=== PATIENT | male | born 1960 | race Caucasian/White ===

== ENCOUNTER 2019-04-09 21:36 | Emergency (ER) | payer OTHER ==
[2019-04-09 21:50] VITALS: BP 119/71; PULSE 67; TEMP 98.4; BMI 21.4
[2019-04-10] MEDS ORDERED: CLINDAMYCIN HCL 150 MG CAPSULE (FP) PO ONE (01:24)
[2019-04-10] MEDS ORDERED: CLINDAMYCIN HCL 150 MG CAPSULE (FP) ONE (01:26)
--- NOTE | 2019-04-10 01:54 | PDOC ---
Documentation entered by Ramandeep Lee SCRIBE, acting as scribe for Harika Barlow MD. Harika Barlow MD: This documentation has been prepared by the Rosa calloway Adrianna, SCRIBE, under my direction and personally reviewed by me in its entirety. I confirm that the documentation accurately reflects all work, treatment, procedures, and medical decision making performed by me. History of Present Illness - General Chief Complaint: Rash Stated Complaint: POSSIBLE RASH TO BACK OF HEAD Time Seen by Provider: 04/10/19 00:43 - History of Present Illness Initial Comments: The patient is a 59 year old male, with a significant PMH of RA, who presents to the ED for evaluation of pustules on the scalp for 2 weeks. Patient notes he gave himself a haircut 2 weeks ago, and developed 3 pustules on the scalp a few days following. Patient notes they originally were itching but transitioned into a burning sensation. He notes the pain is constant, and denies any aggravating or alleviating factors. He denies any purulent drainage or blood coming from the pustules. Denies fever, chills, nausea, vomit, chest pain, SOB, diarrhea, constipation, or urinary symptoms. Allergies: NKA, NKDA Surgical History: None reported Social History: Denies EtOH, tobacco, or illicit drug use PCP: Dr. Ortega Past History - Past Medical History Allergies/Adverse Reactions: Allergies Allergy/AdvReac Type Severity Reaction Status Date / Time No Known Allergies Allergy Verified 04/09/19 21:49 Home Medications: Ambulatory Orders Clindamycin [Cleocin -] 300 mg PO Q6HPO #28 capsule 04/10/19 COPD: No Other medical history: arthritis - Suicide/Smoking/Psychosocial Hx Smoking History: Never smoked Review of Systems - Review of Systems Comments:: GENERAL/CONSTITUTIONAL: No fever or chills. No weakness. HEAD, EYES, EARS, NOSE AND THROAT: +3 pustules on the scalp that are itching and burning. No change in vision. No ear pain or discharge. No sore throat. CARDIOVASCULAR: No chest pain or shortness of breath. RESPIRATORY: No cough, wheezing, or hemoptysis. GASTROINTESTINAL: No nausea, vomiting, diarrhea or constipation. GENITOURINARY: No dysuria, frequency, or change in urination. MUSCULOSKELETAL: No joint or muscle swelling or pain. No neck or back pain. SKIN: No rash NEUROLOGIC: No headache, vertigo, loss of consciousness, or change in strength/ sensation. ENDOCRINE: No increased thirst. No abnormal weight change. HEMATOLOGIC/LYMPHATIC: No anemia, easy bleeding, or history of blood clots. ALLERGIC/IMMUNOLOGIC: No hives or skin allergy. *Physical Exam - Vital Signs Last Vital Signs Temp Pulse Resp BP Pulse Ox 98.4 F 67 18 119/71 99 04/09/19 21:47 04/09/19 21:47 04/09/19 21:47 04/09/19 21:47 04/09/19 21:47 - Physical Exam Comments: CONSTITUTIONAL: Well-appearing; well-nourished; in no apparent distress HEAD: +3 small pustular areas that are ~1cm in dimensions, over the central occiput, right parietal, and superior aspect of the scalp. Normocephalic; atraumatic EYES: PERRL; EOM intact ENMT: External appears normal; normal oropharynx NECK: Supple; non-tender; no cervical lymphadenopathy CARD: Normal S1, S2; no murmurs, rubs, or gallops RESP: Normal chest excursion with respiration; breath sounds clear and equal bilaterally; no wheezes, rhonchi, or rales ABD: Soft, non-distended; non-tender; no palpable organomegaly, no palpable hernias EXT: Normal ROM in all four extremities; non-tender to palpation; distal pulses intact SKIN: Warm, dry, no rash NEURO: No focal neurological deficiencies. Medical Decision Making - Medical Decision Making 04/10/19 22:01 Pt understands that the rash on head could be a bacterial folliculitis or a fungal infection procured at his [facility] 2 weeks ago. Pt will be treated for bacterial infection. He understands that he needs to follow with his PMD [facility] for griseofulvin if this treatment is unsuccessful; I explained to him that he needs to get his LFTs checked initially and periodically through the 4 weeks of oral antifungal treatment. *DC/Admit/Observation/Transfer Diagnosis at time of Disposition: Infectious folliculitis - Discharge Dispostion Disposition: HOME Condition at time of disposition: Stable Decision to Admit order: No - Prescriptions Prescriptions: Clindamycin [Cleocin -] 300 mg PO Q6HPO #28 capsule - Referrals Referrals: Malathi Ortega MD [Primary Care Provider] - - Patient Instructions Printed Discharge Instructions: DI for Folliculitis Print Language: MONGOLIAN - Post Discharge Activity
== END 2019-04-10 01:31 | disposition home or self-care (01) ==
LOC: JER 21:36
DX: L73.8 Other specified follicular disorders (principal)
CPT/HCPCS: 99281-25

== ENCOUNTER 2019-09-06 08:38 | Emergency (ER) | payer OTHER ==
[2019-09-06 08:53] VITALS: BP 114/71; PULSE 104; TEMP 98.8; BMI 26.5
--- NOTE | 2019-09-06 10:31 | PDOC ---
History of Present Illness - General Chief Complaint: Cold Symptoms Stated Complaint: COUGH Time Seen by Provider: 09/06/19 08:53 History Source: Patient Exam Limitations: No Limitations Past History - Travel Traveled outside of the country in the last 30 days: No Close contact w/someone who was outside of country & ill: No - Past Medical History Allergies/Adverse Reactions: Allergies Allergy/AdvReac Type Severity Reaction Status Date / Time No Known Allergies Allergy Verified 09/06/19 08:47 Home Medications: Ambulatory Orders Albuterol Sulfate Inhaler - [Ventolin HFA Inhaler -] 1 - 2 inh PO Q4H #1 inhaler 09/06/19 Azithromycin [Zithromax 250mg Tablets -] 250 mg PO UTDICT #6 tab 09/06/19 Benzonatate 100 mg PO TID 09/06/19 Guaifenesin Dm [Robitussin Dm -] 10 ml PO Q6H #200 ml 09/06/19 COPD: No - Immunization History Immunization Up to Date: No - Psycho Social/Smoking Cessation Hx Smoking History: Never smoked Review of Systems - Review of Systems Able to Perform ROS?: Yes Comments:: 09/06/19 10:04 CONSTITUTIONAL: Absent: fever, chills, diaphoresis, generalized weakness, malaise, loss of appetite HEENT: Absent: rhinorrhea, nasal congestion, throat pain, throat swelling, difficulty swallowing, mouth swelling, ear pain, eye pain, visual Changes CARDIOVASCULAR: Absent: chest pain, loss of consciousness, palpitations, irregular heart rate, peripheral edema RESPIRATORY: Present: Cough absent: cough, shortness of breath, dyspnea with exertion, orthopnea, wheezing, stridor, hemoptysis GASTROINTESTINAL: Absent: abdominal pain, abdominal distension, nausea, vomiting, diarrhea, constipation, melena, hematochezia GENITOURINARY: Absent: dysuria, frequency, urgency, hesitancy, hematuria, flank pain, genital pain MUSCULOSKELETAL: Absent: myalgia, arthralgia, joint swelling SKIN: Absent: rash, itching, pallor HEMATOLOGIC/IMMUNOLOGIC: Absent: easy bleeding, easy bruising, lymphadenopathy, frequent infections ENDOCRINE: Absent: unexplained weight gain, unexplained weight loss, heat intolerance, cold intolerance NEUROLOGIC: Absent: headache, focal weakness or paresthesias, dizziness, unsteady gait, seizure, mental status changes, bladder or bowel incontinence PSYCHIATRIC: Absent: anxiety, depression, suicidal or homicidal ideation, hallucinations. Is the patient limited Nepalese proficient: No *Physical Exam - Vital Signs Last Vital Signs Temp Pulse Resp BP Pulse Ox 98.8 F 104 H 18 114/71 96 09/06/19 08:52 09/06/19 08:52 09/06/19 08:52 09/06/19 08:52 09/06/19 08:52 - Physical Exam 09/06/19 10:04 GENERAL: Well developed, well nourished. Awake and alert. No acute distress. HEENT: Normocephalic, atraumatic. PERRLA, EOMI. No conjunctival pallor. Sclera are non- icteric. Moist mucous membranes. Oropharynx is clear. NECK: Supple. Full ROM. No JVD. Carotid pulses 2+ and symmetric, without bruits. No thyromegaly. No lymphadenopathy. CARDIOVASCULAR: Regular rate and rhythm. No murmurs, rubs, or gallops. Distal pulses are 2+ and symmetric. PULMONARY: No evidence of respiratory distress. Lungs with scattered rhonchi and poor aeration to the bases. No wheezing, rales or rhonchi. ABDOMINAL: Soft. Non-tender. Non-distended. No rebound or guarding. No organomegaly. Normoactive bowel sounds. MUSCULOSKELETAL Normal range of motion at all joints. No bony deformities or tenderness. No CVA tenderness. EXTREMITIES: No cyanosis. No clubbing. No edema. No calf tenderness. SKIN: Warm and dry. Normal capillary refill. No rashes. No jaundice. NEUROLOGICAL: Alert, awake, appropriate. Cranial nerves 2-12 intact. No deficits to light touch and temperature in face, upper extremities and lower extremities. No motor deficits in the in face, upper extremities and lower extremities. Normoreflexic in the upper and lower extremities. Normal speech. Toes are down-going bilaterally. Gait is normal without ataxia. PSYCHIATRIC: Cooperative. Good eye contact. Appropriate mood and affect. ED Treatment Course - RADIOLOGY Radiology Studies Ordered: Category Date Time Status CHEST PA & LAT [RAD] Stat Radiology 09/06/19 08:55 Taken Medical Decision Making - Medical Decision Making 09/06/19 10:04 The patient is a 59-year-old male with past medical history of rheumatoid arthritis, presents to the ER today for 1 month of cough. He states that he saw his primary care doctor who gave him Tessalon Perljarrod which only helped mildly. He states that the cough got worse over the last 2 weeks. He followed up with a textile coating machine operator who took a sputum sample and a chest x-ray. He states he never received the results from the x-ray or the sputum sample. He presents to the ER today because the cough is getting worse despite previous treatment. Denies fevers, chills, sore throat, n/v/d. A/P: Pneumonia On exam pt with decreased breath sounds b/l. No w/r/r. CXR shows a streaking pattern across the middle lobe, concerning for pneumonia. Will start pt on azithromycin, steroids, and albuterol Pt to f/u with his PCP/Clinical Medical Transcriptionist. DC home I discussed the physical exam findings, ancillary test results and final diagnoses with the patient. I answered all of the patient's questions. The patient was satisfied with the care received and felt comfortable with the discharge plan and treatment plan. The Patient agrees to follow up with the primary care physician/specialist within 24-72 hours. Return precautions were given. Discharge - Discharge Information Problems reviewed: Yes Clinical Impression/Diagnosis: Pneumonia Qualifiers: Pneumonia type: due to unspecified organism Laterality: right Lung location: middle lobe of lung Qualified Code(s): J18.9 - Pneumonia, unspecified organism Condition: Stable Disposition: HOME - Admission No - Additional Discharge Information Prescriptions: Albuterol Sulfate Inhaler - [Ventolin HFA Inhaler -] 1 - 2 inh PO Q4H #1 inhaler Azithromycin [Zithromax 250mg Tablets -] 250 mg PO UTDICT #6 tab Guaifenesin Dm [Robitussin Dm -] 10 ml PO Q6H #200 ml - Follow up/Referral Referrals: Malathi Ortega MD [Primary Care Provider] - - Patient Discharge Instructions Patient Printed Discharge Instructions: DI for Pneumonia -- Adult Additional Instructions: Your evaluated for your cough. It appears to have pneumonia on your x-ray. Please take the azithromycin as directed. You may also take Robitussin as needed for your cough. Please follow-up with your primary care doctor this week. Return to the ER for shortness of breath, difficulty breathing or if you have any changes in your symptoms. - Post Discharge Activity Work/Back to School Note: Back to Work
== END 2019-09-06 11:24 | disposition home or self-care (01) ==
LOC: JERFT 08:38
DX: J18.9 Pneumonia, unspecified organism (principal); M06.9 Rheumatoid arthritis, unspecified
CPT/HCPCS: 71046-TC-FY; 99281-25